=== PATIENT | male | born 1990 | race Hispanic/Latino ===

== ENCOUNTER 2021-01-01 19:17 | Inpatient (IN) | payer OTHER, SELFPAY ==
[~2021-01-01] VITALS: Ht 170.2 cm; Wt 67.0 kg
[2021-01-01 20:22] LABS: HEMATOCRIT 45.1 % (42.0-52.0); HEMOGLOBIN 15.3 g/dl (13.5-17.5); MEAN CORPUSCULAR HEMOGLOBIN 30.8 pg (27.0-33.0); MEAN CORPUSCULAR HGB CONC 33.9 g/dl (32.0-36.5); MEAN CORPUSCULAR VOLUME 90.7 fl (80.0-96.0); PLATELET COUNT, AUTOMATED 262 10^3/uL (150-450); RED BLOOD COUNT 4.97 10^6/uL (4.30-6.10); WHITE BLOOD COUNT 6.4 10^3/uL (4.0-10.0)
[2021-01-01 20:44] LABS: AMPHETAMINES LEVEL URINE NEGATIVE (NEGATIVE); BARBITURATES URINE NEGATIVE (NEGATIVE); BENZODIAZEPINES URINE NEGATIVE (NEGATIVE); CANNABINOIDS URINE NEGATIVE (NEGATIVE); COCAINE METABOLITE URINE NEGATIVE (NEGATIVE); METHADONE URINE NEGATIVE (NEGATIVE); OPIATES URINE NEGATIVE (NEGATIVE); PHENCYCLIDINE URINE NEGATIVE (NEGATIVE)
[2021-01-01 20:58] LABS: ACETAMINOPHEN LEVEL < 2.0 UG/ML (10.0-30.0); ALBUMIN 4.4 GM/DL (3.2-5.2); ALT/SGPT 52 U/L (12-78); BILIRUBIN,DIRECT 0.3 MG/DL (0.0-0.2); BILIRUBIN,TOTAL 0.9 MG/DL (0.2-1.0); BLOOD UREA NITROGEN 9 MG/DL (7-18); CALCIUM LEVEL 9.5 MG/DL (8.5-10.1); CARBON DIOXIDE LEVEL 31 MEQ/L (21-32); CHLORIDE LEVEL 103 MEQ/L (98-107); CREATININE FOR GFR 0.97 MG/DL (0.70-1.30); ETHYL ALCOHOL (ETHANOL) < 0.003 % (0.000-0.010); GLOMERULAR FILTRATION RATE > 60.0 (>60); GLUCOSE, FASTING 90 MG/DL (70-100); POTASSIUM SERUM 3.7 MEQ/L (3.5-5.1); SALICYLATE LEVEL < 1.7 MG/DL (5.0-30.0); SODIUM LEVEL 140 MEQ/L (136-145); TOTAL PROTEIN 7.8 GM/DL (6.4-8.2)
[2021-01-01 22:01] LABS: RSV AMPLIFICATION NEGATIVE (NEGATIVE)
[2021-01-01] MEDS ORDERED: MOM 30ML SUSPENSION UDC PO PRN (23:00)
[2021-01-01] MEDS ORDERED: ACETAMINOPHEN TAB 650MG DOSE (2X325MG) PO PRN (23:00)
[2021-01-01] MEDS ORDERED: MAALOX 30 ML SUSP *UDC PO PRN (23:00)
[2021-01-02 00:54] VITALS: BP 112/72
[2021-01-02] MEDS ORDERED: HOME MED LIST COMPLETE! XX SCH (02:10)
--- NOTE | 2021-01-02 07:33 | MHIPNPDOC ---
[facility] Progress Note Progress Note DATE OF SERVICE: 01/02/21 Patient presented by PSA, meets criteria for involuntary admission, had suicidal ideation with plan to crash his car. Vital Signs Vital Signs Date Time Temp Pulse Resp B/P (MAP) Pulse Ox O2 Delivery O2 Flow Rate FiO2 01/02/21 00:54 98.1 70 16 112/72 (85) 97 Room Air Laboratory Data 24H Labs Laboratory Tests 2 01/01/21 19:53: Nucleated Red Blood Cells % (auto) 0.0, Anion Gap 6L, Glomerular Filtration Rate > 60.0, Calcium Level 9.5, Total Bilirubin 0.9, Direct Bilirubin 0.3H, Aspartate Amino Transf (AST/SGOT) 183H, Alanine Aminotransferase (ALT/SGPT) 52, Alkaline Phosphatase 40L, Total Protein 7.8, Albumin 4.4, Albumin/Globulin Ratio 1.3, Thyroid Stimulating Hormone (TSH) 1.100, Salicylates Level < 1.7L, Urine Opiates Screen NEGATIVE, Urine Methadone Screen NEGATIVE, Acetaminophen Level < 2.0L, Urine Barbiturates Screen NEGATIVE, Urine Phencyclidine Screen NEGATIVE, Urine Amphetamines Screen NEGATIVE, Urine Benzodiazepines Screen NEGATIVE, Urine Cocaine Metabolite Screen NEGATIVE, Urine Cannabinoids Screen NEGATIVE, Ethyl Alcohol Level < 0.003 01/01/21 21:02: Coronavirus (COVID-19)(PCR) NEGATIVE, Influenza Type A (RT-PCR) NEGATIVE, Influenza Type B (RT-PCR) NEGATIVE, Respiratory Syncytial Virus (PCR) NEGATIVE CBC/BMP Laboratory Tests 01/01/21 19:53 Current Medications Current Medications Medications (Trade) Dose Ordered Sig/Papo Route PRN Reason Start Time Stop Time Status Last Admin Dose Admin Acetaminophen (Tylenol Tab) 650 mg Q6HP PRN PO HEADACHE or MILD DISCOMFORT 01/01/21 23:00 Al Hydrox/Mg Hydrox/Simethicone (Mylanta) 30 ml Q4HP PRN PO HEARTBURN/INDIGESTION 01/01/21 23:00 Home Med (Home Med List Complete!) ASDIRECTED XX 01/02/21 02:10 01/02/21 02:13 DC Hydroxyzine HCl (Atarax) 50 mg Q6HP PRN PO ANXIETY/AGITATION 01/01/21 23:00 Magnesium Hydroxide (Milk Of Magnesia) 30 ml DAILYPRN PRN PO CONSTIPATION 01/01/21 23:00 Trazodone HCl (Desyrel) 50 mg QHSP PRN PO INSOMNIA 01/01/21 23:00 Allergies Coded Allergies: ibuprofen (Verified Allergy, Intermediate, 01/01/21) eye swelling MIRIAM LANGE MD Jan 02, 2021 07:33
[2021-01-02] MEDS ORDERED: ESCITALOPRAM OXALATE 5MG TABLET (LEXAPRO) PO ONE (11:00)
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
[2021-01-02 19:22] VITALS: BP 125/80
--- NOTE | 2021-01-02 19:52 | HPEPDOC ---
[facility] Medical History & Physical Date of Admission Jan 01, 2021 Date of Service: Jan 02, 2021 History and Physical CHIEF COMPLAINT: Medical health screening HISTORY OF PRESENT ILLNESS: Mr. Valero is a 30-year-old male who is in the inpatient mental health unit for suicidal ideation and depression. Per psychiatry report, patient has been having marital problems for the past several months and is demanding divorce. Patient was having suicidal ideations and was thinking about crashing his car to kill himself. I saw patient in the evening. He tells me he is feeling a little better. Denies any fever, chest pain, shortness of breath, abdominal pain, diarrhea, or dysuria. He still reports depression. He had no other further questions or concerns. Otherwise he tells me he has no past medical history. He has had corrective eye surgery in the past. PAST MEDICAL HISTORY: Denies any past medical history PAST SURGICAL HISTORY: 1. Corrective eye surgery. SOCIAL HISTORY: Tobacco use: Denies ETOH: Denies Illicit drug use: Denies FAMILY HISTORY: Father: Does not know father's past medical history Mother: Reports mother having cholecystectomy ALLERGIES: Please see below. REVIEW OF SYSTEMS: CONSTITUTIONAL: Denies any fever or chills. ENT: Denies sore throat. RESPIRATORY: Denies shortness of breath. Denies cough. CARDIOVASCULAR: Denies chest pain. GASTROINTESTINAL: Denies abdominal pain. Denies diarrhea. GENITOURINARY: Denies dysuria. CUTANEOUS: Denies rashes. HEMATOLOGICAL: Denies bruises. NEUROLOGICAL: Denies paresthesias. PSYCHOLOGICAL: Denies anxiety. Reports depression. HOME MEDICATIONS: Please see below. PHYSICAL EXAMINATION: VITAL SIGNS: Temperature 98.1, pulse 79, respiratory rate 16, blood pressure 125/80, pulse oximetry 97% on room air. GENERAL: Comfortable, in no apparent distress. HEENT: Head normocephalic/atraumatic, EOMI, sclera clear. NECK: Supple. RESPIRATORY: Lungs clear to auscultation bilaterally, no rales, wheeze or rhonchi. CARDIOVASCULAR: Regular rate and rhythm. ABDOMEN: Soft, nontender, no guarding or rebound tenderness. Normal bowel sounds. MUSCLE SKELETAL: Muscle strength 5/5 in all extremities. NEUROLOGICAL: CN 3-12 grossly intact, no focal deficits noted. PSYCHOLOGICAL: Normal mood and affect LABORATORY DATA: See below. IMAGING: None MICROBIOLOGY: Please see below. ASSESSMENT and PLAN: 1. Suicidal ideation Being managed by the inpatient mental health unit 2. Depression Being managed by the inpatient mental health unit Thank you for consulting us. We will sign off at this time. If there is any further questions or concerns, please do not hesitate to reconsult us. Vital Signs Vital Signs Date Time Temp Pulse Resp B/P (MAP) Pulse Ox O2 Delivery O2 Flow Rate FiO2 01/02/21 19:22 98.1 79 16 125/80 (95) 01/02/21 09:27 Room Air 01/02/21 00:54 97 Laboratory Data Labs 24H Laboratory Tests 2 01/01/21 19:53: Nucleated Red Blood Cells % (auto) 0.0, Anion Gap 6L, Glomerular Filtration Rate > 60.0, Calcium Level 9.5, Total Bilirubin 0.9, Direct Bilirubin 0.3H, Aspartate Amino Transf (AST/SGOT) 183H, Alanine Aminotransferase (ALT/SGPT) 52, Alkaline Phosphatase 40L, Total Protein 7.8, Albumin 4.4, Albumin/Globulin Ratio 1.3, Thyroid Stimulating Hormone (TSH) 1.100, Salicylates Level < 1.7L, Urine Opiates Screen NEGATIVE, Urine Methadone Screen NEGATIVE, Acetaminophen Level < 2.0L, Urine Barbiturates Screen NEGATIVE, Urine Phencyclidine Screen NEGATIVE, Urine Amphetamines Screen NEGATIVE, Urine Benzodiazepines Screen NEGATIVE, Urine Cocaine Metabolite Screen NEGATIVE, Urine Cannabinoids Screen NEGATIVE, Ethyl Alcohol Level < 0.003 01/01/21 21:02: Coronavirus (COVID-19)(PCR) NEGATIVE, Influenza Type A (RT-PCR) NEGATIVE, Influenza Type B (RT-PCR) NEGATIVE, Respiratory Syncytial Virus (PCR) NEGATIVE CBC/BMP Laboratory Tests 01/01/21 19:53 Home Medications No Active Prescriptions or Reported Meds Allergies Coded Allergies: ibuprofen (Verified Allergy, Intermediate, 01/01/21) eye swelling A-FIB/CHADSVASC A-FIB History Current/History of A-Fib/PAF?: No ALMAZ CORREA DO Jan 02, 2021 19:52
[2021-01-03 08:55] VITALS: BP 108/69
[2021-01-03] MEDS: ESCITALOPRAM OXALATE 10 MG TAB (LEXAPRO) PO SCH (09:08)
[2021-01-03] MEDS ORDERED: LEXA1TAB PO (10:57)
[2021-01-03] MEDS ORDERED: TRAZ-252 PO (10:57)
[2021-01-03] MEDS ORDERED: HYDR50TA70 PO (10:57)
[2021-01-03] MEDS: hydrOXYzine 50 MG TAB PO PRN ×2 (11:46→20:44)
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
[2021-01-03 19:23] VITALS: BP 127/80
[2021-01-03] MEDS: traZODone 50 MG TAB PO PRN (20:44)
[2021-01-04 06:35] VITALS: BP 147/68
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
[2021-01-04] MEDS: ESCITALOPRAM OXALATE 10 MG TAB (LEXAPRO) PO SCH (09:46)
[2021-01-04] MEDS: hydrOXYzine 50 MG TAB PO PRN (13:08)
[2021-01-04 16:15] VITALS: BP 122/73
[2021-01-05 06:20] VITALS: BP 117/64
[2021-01-05] MEDS: ESCITALOPRAM OXALATE 10 MG TAB (LEXAPRO) PO SCH (08:40)
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
[2021-01-05] MEDS: hydrOXYzine 50 MG TAB PO PRN (18:41)
[2021-01-05 19:20] VITALS: BP 120/80
[2021-01-05] MEDS: traZODone 50 MG TAB PO PRN (20:30)
[2021-01-06 07:13] VITALS: BP 144/68
[2021-01-06 07:23] VITALS: BP 127/68
[2021-01-06] MEDS: ESCITALOPRAM OXALATE 10 MG TAB (LEXAPRO) PO SCH (10:17)
[2021-01-06] MEDS: hydrOXYzine 50 MG TAB PO PRN (11:35)
[2021-01-06 19:08] VITALS: BP 130/85
[2021-01-07 06:34] VITALS: BP 138/78
[2021-01-07] MEDS: ESCITALOPRAM OXALATE 10 MG TAB (LEXAPRO) PO SCH (08:57)
[2021-01-07] MEDS: hydrOXYzine 50 MG TAB PO PRN (21:10)
[2021-01-07] MEDS: traZODone 50 MG TAB PO PRN (21:10)
[2021-01-07 22:00] VITALS: BP 134/70
[2021-01-08 06:38] VITALS: BP 119/59
[2021-01-08] MEDS: ESCITALOPRAM OXALATE 10 MG TAB (LEXAPRO) PO SCH (08:45)
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
[2021-01-08 16:43] VITALS: BP 124/76
[2021-01-08] MEDS: hydrOXYzine 50 MG TAB PO PRN (21:59)
[2021-01-09 06:35] VITALS: BP 114/69
[2021-01-09] MEDS: ESCITALOPRAM OXALATE 10 MG TAB (LEXAPRO) PO SCH (07:46)
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
== END 2021-01-09 10:35 | disposition home or self-care (01) | DRG 882 ==
LOC: M ED 19:17 → M ED INP 23:55 → M PSY 01-02 00:57
PROVIDERS: ADMIT Psychiatry & Neurology Psychiatry; ATTEND Psychiatry & Neurology Psychiatry
DX: F43.23 Adjustment disorder with mixed anxiety and depressed mood (principal); R45.851 Suicidal ideations; Z88.6 Allergy status to analgesic agent; Z63.0 Problems in relationship with spouse or partner

== ENCOUNTER 2021-01-11 20:25 | Emergency (ER) | payer OTHER ==
[~2021-01-11] VITALS: Ht 170.2 cm; Wt 65.9 kg
[~2021-01-11 20:25] MED LIST: HYDR50TA70 PO; LEXA1TAB PO; TRAZ-252 PO
--- OUTSIDE RECORDS SUMMARY | 2021-01-11 20:30 | CCD ---
Author Author [facility] Address Unknown Phone Unavailable Support Name Relationship Address Phone UE Next Of Kin Unknown Unavailable WANDA INGRAM Next Of Kin [id number] [place], [place] [id number] Re-disclosure Warning The records that you are about to access may contain information from federally-assisted alcohol or drug abuse programs. If such information is present, then the following federally mandated warning applies: This information has been disclosed to you from records protected by federal confidentiality rules (42 CFR part 2). The federal rules prohibit you from making any further disclosure of this information unless further disclosure is expressly permitted by the written consent of the person to whom it pertains or as otherwise permitted by 42 CFR part 2. A general authorization for the release of medical or other information is NOT sufficient for this purpose. The Federal rules restrict any use of the information to criminally investigate or prosecute any alcohol or drug abuse patient.The records that you are about to access may contain highly sensitive health information, the redisclosure of which is protected by Article 27-F of the [facility] Public Health law. If you continue you may have access to information: Regarding HIV / AIDS; Provided by facilities licensed or operated by the [facility] Office of Mental Health; or Provided by the [facility] Office for People With Developmental Disabilities. If such information is present, then the following [facility] mandated warning applies: This information has been disclosed to you from confidential records which are protected by state law. State law prohibits you from making any further disclosure of this information without the specific written consent of the person to whom it pertains, or as otherwise permitted by law. Any unauthorized further disclosure in violation of state law may result in a fine or alf sentence or both. A general authorization for the release of medical or other information is NOT sufficient authorization for further disc losure. Medications No Information Insurance Providers Payer name Policy type / Coverage type Policy ID Covered democrat ID Covered democrat's relationship to lemons Policy Lemons Plan Information [facility] [id number] [employer] [id number] SELF PAY ONLY [id number] Problems, Conditions, and Diagnoses No Information Surgeries/Procedures No Information Results ID Date Data Source [id number] 01/01/2021 09:02:00 PM EDT [facility] Name Value Range Interpretation Code Description Data Patricia rce(s) Supporting Document(s) SARS coronavirus 2 RNA [Presence] in Res piratory specimen by CAITLYN with probe detection NEGATIVE [facility] This lab was ordered by [facility] a nd reported by [facility]. Procedure Social History No Information
--- OUTSIDE RECORDS SUMMARY | 2021-01-11 21:43 | CCD ---
Author Author [facility] Address Unknown Phone Unavailable Support Name Relationship Address Phone UE Next Of Kin Unknown Unavailable WANDA INGRAM Next Of Kin [id number] [place], [place] [id number] Re-disclosure Warning The records that you are [...] is protected by Article 27-F of the [facility] Public Health law. If you continue you may have access to information: Regarding HIV / AIDS; Provided by facilities licensed or operated by the [facility] Office of Mental Health; or Provided by the [facility] Office for People With Developmental Disabilities. If such information is present, then the following [facility] mandated warning applies: This information has [...] law may result in a fine or mcc sentence or both. A general authorization for the release of medical or other information is NOT sufficient authorization for further disc losure. Medications No Information Insurance Providers Payer name Policy type / Coverage type Policy ID Covered democrat ID Covered democrat's relationship to lemons Policy Lemons Plan Information [facility] [id number] [facility] [id number] SELF PAY ONLY [id number] Problems, Conditions, and Diagnoses No Information Surgeries/Procedures No Information Results ID Date Data Source [id number] 01/01/2021 09:02:00 PM EDT [facility] Name Value Range Interpretation Code Description Data Patricia rce(s) Supporting Document(s) SARS coronavirus 2 RNA [Presence] in Res piratory specimen by CAITLYN with probe detection NEGATIVE [facility] This lab was ordered by [facility] a nd reported by [facility]. Procedure Social History No Information
[2021-01-11 22:08] LABS: HEMATOCRIT 43.3 % (42.0-52.0); MEAN CORPUSCULAR HEMOGLOBIN 31.1 pg (27.0-33.0); MEAN CORPUSCULAR HGB CONC 34.6 g/dl (32.0-36.5); MEAN CORPUSCULAR VOLUME 89.8 fl (80.0-96.0); PLATELET COUNT, AUTOMATED 237 10^3/uL (150-450); RED BLOOD COUNT 4.82 10^6/uL (4.30-6.10); WHITE BLOOD COUNT 7.3 10^3/uL (4.0-10.0)
[2021-01-11 22:34] LABS: AMPHETAMINES LEVEL URINE NEGATIVE (NEGATIVE); BARBITURATES URINE NEGATIVE (NEGATIVE); BENZODIAZEPINES URINE NEGATIVE (NEGATIVE); CANNABINOIDS URINE NEGATIVE (NEGATIVE); COCAINE METABOLITE URINE NEGATIVE (NEGATIVE); METHADONE URINE NEGATIVE (NEGATIVE); OPIATES URINE NEGATIVE (NEGATIVE); PHENCYCLIDINE URINE NEGATIVE (NEGATIVE)
[2021-01-11 22:49] LABS: ACETAMINOPHEN LEVEL < 2.0 UG/ML (10.0-30.0); ALBUMIN 4.1 GM/DL (3.2-5.2); ALT/SGPT 27 U/L (12-78); BILIRUBIN,DIRECT 0.3 MG/DL (0.0-0.2); BILIRUBIN,TOTAL 0.9 MG/DL (0.2-1.0); BLOOD UREA NITROGEN 12 MG/DL (7-18); CARBON DIOXIDE LEVEL 29 MEQ/L (21-32); CHLORIDE LEVEL 102 MEQ/L (98-107); CREATININE FOR GFR 1.05 MG/DL (0.70-1.30); ETHYL ALCOHOL (ETHANOL) < 0.003 % (0.000-0.010); GLOMERULAR FILTRATION RATE > 60.0 (>60); GLUCOSE, FASTING 92 MG/DL (70-100); SALICYLATE LEVEL < 1.7 MG/DL (5.0-30.0); SODIUM LEVEL 137 MEQ/L (136-145); TOTAL PROTEIN 7.4 GM/DL (6.4-8.2)
--- NOTE | 2021-01-12 06:10 | MHIPNPDOC ---
[facility] Progress Note Progress Note DATE OF SERVICE: 01/12/21 Patient presented by PSA. meets criteria for involuntary admission. Has worsening SI in context verbal argument at home. See PSA note for details. Vital Signs Vital Signs Date Time Temp Pulse Resp B/P (MAP) Pulse Ox O2 Delivery O2 Flow Rate FiO2 01/12/21 05:28 97.0 67 18 131/86 (101) 97 01/11/21 21:30 Room Air Laboratory Data 24H Labs Laboratory Tests 2 01/11/21 21:50: Nucleated Red Blood Cells % (auto) 0.0, Anion Gap 6L, Glomerular Filtration Rate > 60.0, Calcium Level 9.0, Total Bilirubin 0.9, Direct Bilirubin 0.3H, Aspartate Amino Transf (AST/SGOT) 15, Alanine Aminotransferase (ALT/SGPT) 27, Alkaline Phosphatase 43L, Total Protein 7.4, Albumin 4.1, Albumin/Globulin Ratio 1.2, Thyroid Stimulating Hormone (TSH) 1.380, Salicylates Level < 1.7L, Urine Opiates Screen NEGATIVE, Urine Methadone Screen NEGATIVE, Acetaminophen Level < 2.0L, Urine Barbiturates Screen NEGATIVE, Urine Phencyclidine Screen NEGATIVE, Urine Amphetamines Screen NEGATIVE, Urine Benzodiazepines Screen NEGATIVE, Urine Cocaine Metabolite Screen NEGATIVE, Urine Cannabinoids Screen NEGATIVE, Ethyl Al cohol Level < 0.003 CBC/BMP Laboratory Tests 01/11/21 21:50 Allergies Coded Allergies: ibuprofen (Verified Allergy, Intermediate, 01/01/21) eye swelling MIRIAM LANGE MD Jan 12, 2021 06:10
--- NOTE | 2021-01-12 08:36 | ECGEPIP ---
[facility] - ED Test Date: 2021-01-12 Pat Name: RM INGRAM Department: Room: - Gender: Male Supervisor [employer]: [facility] : 1990 Requested By: ADRIANNA Miranda Order Number: [id number] Reading MD: Yash Dee Measurements Intervals [place] Rate: 57 P: 67 [place]: 156 QRS: 77 QRSD: 94 T: 22 QT: 408 QTc: 397 Interpretive Statements Sinus bradycardia INCOMPLETE RIGHT BUNDLE BRANCH BLOCK NONSPECIFIC T WAVE ABNORMALITY(S) NO PRIORS FOR COMPARISON Electronically Signed on 01-12-2021 8:35:33 EDT by Yash Dee
[2021-01-12] MEDS ORDERED: ESCITALOPRAM OXALATE 10 MG TAB (LEXAPRO) PO SCH (09:10)
[2021-01-12] MEDS ORDERED: LEXA1TAB PO (09:39)
[2021-01-12] MEDS ORDERED: TRAZ-252 PO (09:39)
[2021-01-12] MEDS ORDERED: HYDR50TA70 PO (09:39)
[2021-01-12] MEDS ORDERED: HOME MED LIST COMPLETE! XX SCH (09:40)
[2021-01-12] MEDS ORDERED: hydrOXYzine 50 MG TAB PO SCH (10:45)
[2021-01-12] MEDS ORDERED: hydrOXYzine 50 MG TAB PO PRN (10:57)
[2021-01-12 12:08] LABS: RSV AMPLIFICATION NEGATIVE (NEGATIVE)
[2021-01-13 03:33] VITALS: BP 139/67
== END 2021-01-13 03:44 | disposition short-term general hospital (02) ==
LOC: M ED 20:25
DX: F32.9 Major depressive disorder, single episode, unspecified (principal); R45.851 Suicidal ideations; R00.1 Bradycardia, unspecified; I45.19 Other right bundle-branch block; F41.9 Anxiety disorder, unspecified; G47.00 Insomnia, unspecified; Z88.6 Allergy status to analgesic agent